=== PATIENT | female | born 1995 | race Caucasian/White ===

== ENCOUNTER 2020-05-19 17:57 | Inpatient (IN) | payer MEDICAID ==
[2020-05-19] MEDS ORDERED: Ondansetron 4 MG/2 ML SDV IVPUSH PRN (18:07)
[2020-05-19] MEDS ORDERED: Sodium Chloride 0.9% 10 ML Syringe FLUSH PRN (18:07)
[2020-05-19] MEDS ORDERED: Nalbuphine 10 MG/1 ML Vial IVPUSH PRN (18:07)
[2020-05-19] MEDS ORDERED: Ampicillin 2 GM in Sodium Chloride 0.9% 100 ML IV ONE (18:07)
[2020-05-19] MEDS ORDERED: Oxytocin/Lactated Ringers 10 UNIT/1,000 ML BAG IV SCH ×2 (18:15)
[2020-05-19] MEDS ORDERED: Ampicillin 2 GM AdvVial IV ONE (20:59)
[2020-05-19] MEDS: Lactated Ringers 1,000 ML IV SCH (21:10)
[2020-05-19] MEDS ORDERED: Calcium Carbonate 500 MG Tab.Chew PO PRN (21:16)
[2020-05-20] MEDS: Lactated Ringers 1,000 ML IV SCH ×3 (00:41→05:25)
[2020-05-20] MEDS: Ampicillin 1 GM in Sodium Chloride 0.9% 100 ML IV SCH ×5 (00:58→16:44)
[2020-05-20] MEDS ORDERED: Ondansetron 4 MG/2 ML SDV IVPUSH PRN (04:01)
[2020-05-20] MEDS ORDERED: fentaNYL 100 MCG/2 ML SDV EPIDUR PRN (04:01)
[2020-05-20] MEDS ORDERED: ePHEDrine 50 MG/ML SDV IVPUSH PRN (04:01)
--- NOTE | 2020-05-20 04:06 | PCM.PREANE ---
Preanesthetic Assessment - Procedure Proposed Procedure: Epidural - Anesthesia/Transfusion/Family Hx Anesthesia History: Prior Anesthesia Without Reaction Family History of Anesthesia Reaction: No Transfusion History: No Prior Transfusion(s) Intubation History: Unknown - Review of Systems General: No Symptoms Pulmonary: No Symptoms Cardiovascular: No Symptoms (Gestational HTN) Gastrointestinal: No Symptoms (GERD), Constipation, Nausea Neurological: No Symptoms (Motion sickness/scoliosis) - Physical Assessment NPO Status Date: 05/19/20 Vital Signs: Last Vital Signs Temp 36.7 C 05/19/20 18:08 Pulse 99 05/19/20 18:08 Resp 16 05/19/20 18:08 BP 148/61 H 05/19/20 18:08 Pulse Ox 99 05/19/20 18:08 Height: 1.73 m Weight: 118.841 kg ASA Class: 2 Mental Status: Alert & Oriented x3 Airway Class: Mallampati = 3 Dentition: Reports: Normal Dentition (bottom permanent retainer), Caries Thyro-Mental Finger Breadths: 3 Mouth Opening Finger Breadths: 3 ROM/Head Extension: Full Lungs: Clear to Auscultation, Normal Respiratory Effort Cardiovascular: Regular Rate, Regular Rhythm, No Murmurs - Lab Values: Laboratory Last Values WBC 12.80 K/mm3 (3.98-10.04) H 05/19/20 18:35 RBC 4.68 M/mm3 (3.98-5.22) 05/19/20 18:35 Hgb 11.5 gm/dl (11.2-15.7) 05/19/20 18:35 Hct 36.5 % (34.1-44.9) 05/19/20 18:35 MCV 78.0 fl (79.4-94.8) L 05/19/20 18:35 MCH 24.6 pg (25.6-32.2) L 05/19/20 18:35 MCHC 31.5 g/dl (32.2-35.5) L 05/19/20 18:35 RDW Std Deviation 48.4 fL (36.4-46.3) H 05/19/20 18:35 Plt Count 230 K/mm3 (182-369) 05/19/20 18:35 MPV 10.4 fl (9.4-12.3) 05/19/20 18:35 Neut % (Auto) 75.7 % (34.0-71.1) H 05/19/20 18:35 Lymph % (Auto) 14.1 % (19.3-51.7) L 05/19/20 18:35 [place] % (Auto) 7.2 % (4.7-12.5) 05/19/20 18:35 Eos % (Auto) 2.6 (0.7-5.8) 05/19/20 18:35 Baso % (Auto) 0.2 % (0.1-1.2) 05/19/20 18:35 Neut # (Auto) 9.70 K/mm3 (1.56-6.13) H 05/19/20 18:35 Lymph # (Auto) 1.80 K/mm3 (1.18-3.74) 05/19/20 18:35 [place] # (Auto) 0.92 K/mm3 (0.24-0.36) H 05/19/20 18:35 Eos # (Auto) 0.33 K/mm3 (0.04-0.36) 05/19/20 18:35 Baso # (Auto) 0.03 K/mm3 (0.01-0.08) 05/19/20 18:35 Manual Slide Review Abnormal smear 05/19/20 18:35 BUN 10 mg/dL (7-18) 05/19/20 18:35 Creatinine 0.8 mg/dL (0.55-1.02) 05/19/20 18:35 Est Cr Clr Drug Dosing 109.38 mL/min 05/19/20 18:35 Estimated GFR (MDRD) > 60 mL/min (>60) 05/19/20 18:35 Uric Acid 5.1 mg/dL (2.6-6.0) 05/19/20 18:35 AST 10 U/L (15-37) L 05/19/20 18:35 ALT 16 U/L (14-59) 05/19/20 18:35 Lactate Dehydrogenase 112 U/L (81-234) 05/19/20 18:35 Ur Random Creatinine 75.7 mg/dL (30.0-125.0) 05/20/20 00:30 U Random Total Protein 10.9 mg/dL (0.0-11.8) 05/20/20 00:30 Protein/Creatinin Ratio 144.0 mg/g (0-149) 05/20/20 00:30 SARS-CoV-2 RNA (ANNA) Negative (NEGATIVE) 05/19/20 18:30 Above labs reviewed and noted and within acceptable ranges to proceed with epidural - Allergies Allergies/Adverse Reactions: Allergies Allergy/AdvReac Type Severity Reaction Status Date / Time oxycodone [From Percocet] Allergy Mild Nausea and Verified 05/19/20 19:09 Vomiting pineapple Allergy Mild Hives Verified 05/19/20 19:09 - Anesthesia Plan Pre-Op Medication Ordered: None - Acknowledgements Anesthesia Type Planned: Epidural Pt an Appropriate Candidate for the Planned Anesthesia: Yes Alternatives and Risks of Anesthesia Discussed w Pt/Guardian: Yes Pt/Guardian Understands and Agrees with Anesthesia Plan: Yes PreAnesthesia Questionnaire HEENT History: Reports: Otitis Media Gastrointestinal History: Reports: Irritable Bowel Syndrome Genitourinary History: Reports: UTI, Recurrent 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: , Spontaneous Endocrine/Metabolic History: Reports: Other (See Below) Other Endocrine/Metabolic History: enlarged thyroid - SUBSTANCE USE Tobacco Use Status *Q: Never Tobacco User Second Hand Smoke Exposure: No Recreational Drug Use History: No - HOME MEDS Home Medications: Home Meds Aspirin [Aspirin EC] 81 mg PO DAILY 01/31/20 [History] Ondansetron [Zofran] 4 mg PO Q4H PRN 01/31/20 [History] Pnv No.95/Ferrous Fum/Folic AC [ Tablet] 1 each PO DAILY 01/31/20 [History] cephALEXin [Cephalexin] 250 mg PO BEDTIME 01/31/20 [History] Cimetidine 200 mg PO BIDMEALS 04/12/20 [History] - CURRENT (IN HOUSE) MEDS Current Meds: Current Medications Calcium Carbonate/Glycine (Tums) 1,000 mg PO Q2HR PRN PRN Reason: Indigestion Last Admin: 05/19/20 21:44 Dose: 1,000 mg Documented by: Ephedrine Sulfate (Ephedrine Sulfate) 5 mg IVPUSH ASDIRECTED PRN PRN Reason: Hypotension Fentanyl (Sublimaze) 100 mcg EPIDUR Q3H PRN PRN Reason: Pain Fentanyl/Bupivacaine HCl (Fentanyl/Bupivacaine/Ns 2 Mcg-0.125% 100 Ml) 100 ml EPIDUR ASDIRECTED MELY Oxytocin/Lactated Ringer's (Pitocin In Lr 10 Units/1,000 Ml) 10 unit in 1,000 mls @ 12 mls/hr IV TITRATE MELY; Protocol Last Titration: 05/20/20 02:55 Dose: 12 munits/min, 72 mls/hr Documented by: Oxytocin/Lactated Ringer's (Pitocin In Lr 10 Units/1,000 Ml) 10 unit in 1,000 mls @ 500 mls/hr IV .CONTINUOUS MELY Lactated Ringer's (Ringers, Lactated) 1,000 mls @ 100 mls/hr IV ASDIRECTED MELY Last Admin: 05/20/20 00:41 Dose: 100 mls/hr Documented by: Ampicillin Sodium 1 gm/ Sodium (Chloride) 100 mls @ 200 mls/hr IV Q4H [facility] Miscellaneous Medication (Phenylephrine 1 Mg/10 Ml-Ns) 0 mg IVPUSH ONETIME ONE Stop: 05/20/20 04:02 Nalbuphine HCl (Nubain) 10 mg IVPUSH Q2H PRN PRN Reason: Pain Ondansetron HCl (Zofran) 4 mg IVPUSH Q4H PRN PRN Reason: Nausea/Vomiting Ondansetron HCl (Zofran) 4 mg IVPUSH ONETIME PRN PRN Reason: Nausea/Vomiting Sodium Chloride (Saline Flush) 10 ml FLUSH ASDIRECTED PRN PRN Reason: Keep Vein Open Discontinued Medications Ampicillin Sodium (Ampicillin) Confirm Administered Dose 2 gm IV .STK-MED ONE Stop: 05/19/20 21:00 Last Admin: 05/19/20 21:19 Dose: Not Given Documented by: Ampicillin Sodium 2 gm/ Sodium (Chloride) 100 mls @ 200 mls/hr IV ONETIME ONE Stop: 05/19/20 18:36 Last Admin: 05/19/20 21:11 Dose: 200 mls/hr Documented by: Ampicillin Sodium 1 gm/ Sodium (Chloride) 100 mls @ 200 mls/hr IV Q4H [facility] Last Admin: 05/20/20 00:58 Dose: 200 mls/hr Documented by:
[2020-05-20] MEDS ORDERED: Bupivacaine/fentaNYL/NS 100 ML Bag EPIDUR SCH (04:15)
--- NOTE | 2020-05-20 08:00 | PCM.LDHP ---
L&D History of Present Illness - General Date of Service: 05/20/20 Admit Problem/Dx: Patient Status Order with Admit Dx/Problem 05/19/20 18:08 Patient Status [ADT] Routine Admission Diagnosis/Problem Admission Diagnosis/Problem - History of Present Illness Introduction:: 24 year old at 39w1. Here for SROM. Clear fluid. Pain Score: 0 - Related Data Allergies/Adverse Reactions: Allergies Allergy/AdvReac Type Severity Reaction Status Date / Time oxycodone [From Percocet] Allergy Mild Nausea and Verified 05/19/20 19:09 Vomiting pineapple Allergy Mild Hives Verified 05/19/20 19:09 Home Medications: Home Meds Aspirin [Aspirin EC] 81 mg PO DAILY 01/31/20 [History] Ondansetron [Zofran] 4 mg PO Q4H PRN 01/31/20 [History] Pnv No.95/Ferrous Fum/Folic AC [ Tablet] 1 each PO DAILY 01/31/20 [History] cephALEXin [Cephalexin] 250 mg PO BEDTIME 01/31/20 [History] Cimetidine 200 mg PO BIDMEALS 04/12/20 [History] Past Medical History HEENT History: Reports: Otitis Media Gastrointestinal History: Reports: Irritable Bowel Syndrome Genitourinary History: Reports: UTI, Recurrent RAD TECH History: Reports: , Spontaneous Endocrine/Metabolic History: Reports: Other (See Below) Other Endocrine/Metabolic History: enlarged thyroid Social & Family History - Family History Family Medical History: No Pertinent Family History - Tobacco Use Tobacco Use Status *Q: Never Tobacco User Second Hand Smoke Exposure: No - Recreational Drug Use Recreational Drug Use: No H&P Review of Systems - Review of Systems: Review Of Systems: See Below General: Reports: No Symptoms HEENT: Reports: No Symptoms Pulmonary: Reports: No Symptoms Cardiovascular: Reports: No Symptoms Gastrointestinal: Reports: No Symptoms Genitourinary: Reports: No Symptoms Musculoskeletal: Reports: No Symptoms Skin: Reports: No Symptoms Psychiatric: Reports: No Symptoms Neurological: Reports: No Symptoms Hematologic/Lymphatic: Reports: No Symptoms Immunologic: Reports: No Symptoms L&D Exam - Exam Exam: See Below - Vital Signs Vital Signs: Last Vital Signs Temp 36.7 C 05/19/20 18:08 Pulse 99 05/19/20 18:08 Resp 16 05/19/20 18:08 BP 148/61 H 05/19/20 18:08 Pulse Ox 100 05/20/20 04:53 Weight: 118.841 kg - OB Specific Contraction Intensity: Moderate to Strong Movement: Active Heart Tones: Present Heart Rate (FHR) Variability: Moderate (6-25 bmp) Presentation: Vertex - Son Score Son Score Cervix Position: Anterior Son Score Consistency: Medium Son Score Effacement: >80% Son Score Dilation: 3-4 cm Son Score Infant's Station: -2 Son Score Total: 9 - Exam General: Alert, Oriented HEENT: PERRLA, Conjunctiva Clear, EACs Clear, EOMI, Hearing Intact, Mucosa Moist & [place], Nares Patent, Normal Nasal Septum, Posterior Pharynx Clear, TMs Clear Neck: Supple, Trachea Midline Lungs: Clear to Auscultation, Normal Respiratory Effort Cardiovascular: Regular Rate, Regular Rhythm GI/Abdominal Exam: Normal Bowel Sounds, Soft, Non-Tender, No Organomegaly, No Distention, No Abnormal Bruit, No Mass, Pelvis Stable Genitourinary: Normal external exam Back Exam: Normal Inspection, Full Range of Motion Extremities: Normal Inspection, Normal Range of Motion, Non-Tender, No Pedal Edema, Normal Capillary Refill Skin: Warm, Dry, Intact Neurological: Cranial Nerves Intact, Reflexes Equal Bilateral Psychiatric: Alert, Normal Affect, Normal Mood - Patient Data Lab Results Last 24 hrs: Laboratory Results - last 24 hr 05/19/20 05/19/20 05/19/20 Range/Units 18:30 18:35 18:35 WBC 12.80 H (3.98-10.04) K/mm3 RBC 4.68 (3.98-5.22) M/mm3 Hgb 11.5 (11.2-15.7) gm/dl Hct 36.5 (34.1-44.9) % MCV 78.0 L (79.4-94.8) fl MCH 24.6 L (25.6-32.2) pg MCHC 31.5 L (32.2-35.5) g/dl RDW Std Deviation 48.4 H (36.4-46.3) fL Plt Count 230 (182-369) K/mm3 MPV 10.4 (9.4-12.3) fl Neut % (Auto) 75.7 H (34.0-71.1) % Lymph % (Auto) 14.1 L (19.3-51.7) % [place] % (Auto) 7.2 (4.7-12.5) % Eos % (Auto) 2.6 (0.7-5.8) Baso % (Auto) 0.2 (0.1-1.2) % Neut # (Auto) 9.70 H (1.56-6.13) K/mm3 Lymph # (Auto) 1.80 (1.18-3.74) K/mm3 [place] # (Auto) 0.92 H (0.24-0.36) K/mm3 Eos # (Auto) 0.33 (0.04-0.36) K/mm3 Baso # (Auto) 0.03 (0.01-0.08) K/mm3 Manual Slide Review Abnormal smear BUN 10 (7-18) mg/dL Creatinine 0.8 (0.55-1.02) mg/dL Est Cr Clr Drug Dosing 109.38 mL/min Estimated GFR (MDRD) > 60 (>60) mL/min Uric Acid 5.1 (2.6-6.0) mg/dL AST 10 L (15-37) U/L ALT 16 (14-59) U/L Lactate Dehydrogenase 112 (81-234) U/L Ur Random Creatinine (30.0-125.0) mg/dL U Random Total Protein (0.0-11.8) mg/dL Protein/Creatinin Ratio (0-149) mg/g SARS-CoV-2 RNA (ANNA) Negative (NEGATIVE) 05/20/20 Range/Units 00:30 WBC (3.98-10.04) K/mm3 RBC (3.98-5.22) M/mm3 Hgb (11.2-15.7) gm/dl Hct (34.1-44.9) % MCV (79.4-94.8) fl MCH (25.6-32.2) pg MCHC (32.2-35.5) g/dl RDW Std Deviation (36.4-46.3) fL Plt Count (182-369) K/mm3 MPV (9.4-12.3) fl Neut % (Auto) (34.0-71.1) % Lymph % (Auto) (19.3-51.7) % [place] % (Auto) (4.7-12.5) % Eos % (Auto) (0.7-5.8) Baso % (Auto) (0.1-1.2) % Neut # (Auto) (1.56-6.13) K/mm3 Lymph # (Auto) (1.18-3.74) K/mm3 [place] # (Auto) (0.24-0.36) K/mm3 Eos # (Auto) (0.04-0.36) K/mm3 Baso # (Auto) (0.01-0.08) K/mm3 Manual Slide Review BUN (7-18) mg/dL Creatinine (0.55-1.02) mg/dL Est Cr Clr Drug Dosing mL/min Estimated GFR (MDRD) (>60) mL/min Uric Acid (2.6-6.0) mg/dL AST (15-37) U/L ALT (14-59) U/L Lactate Dehydrogenase (81-234) U/L Ur Random Creatinine 75.7 (30.0-125.0) mg/dL U Random Total Protein 10.9 (0.0-11.8) mg/dL Protein/Creatinin Ratio 144.0 (0-149) mg/g SARS-CoV-2 RNA (ANNA) (NEGATIVE) Result Diagrams: 05/19/20 18:35 05/19/20 18:35 Problem List Initiated/Reviewed/Updated: Yes Orders Last 24hrs: Active Orders 24 hr Category Date Time Status Patient Status [ADT] Routine ADT 05/19/20 18:08 Active Activity as Tolerated [RC] PFP Care 05/19/20 18:08 Active Communication Order [RC] ASDIRECTED Care 05/19/20 18:08 Active Notify Provider [RC] ASDIRECTED Care 05/20/20 04:01 Active Notify Provider [RC] PFP Care 05/19/20 18:08 Active Notify Provider [RC] PRN Care 05/19/20 18:08 Active Oxygen Therapy [RC] ASDIRECTED Care 05/20/20 04:01 Active Peripheral IV Care [RC] Q2HR Care 05/19/20 18:08 Active Pulse Oximetry [RC] ASDIRECTED Care 05/20/20 04:01 Active Vital Signs [RC] PER UNIT ROUTINE Care 05/19/20 18:08 Active Regular Diet [DIET] Diet 05/19/20 Dinner Active RAPID PLASMA REAGIN,RPR [CHEM] Routine Lab 05/19/20 18:35 Received Ampicillin 1 gm Med 05/20/20 05:00 Active Sodium Chloride 0.9% [Normal Saline] 100 ml IV Q4H Bupivacaine/fentaNYL/NS [fentaNYL/Bupivacaine/NS 2 MCG- Med 05/20/20 04:15 Active 0.125% 100 ML] 100 ml EPIDUR ASDIRECTED Calcium Carbonate [Tums] Med 05/19/20 21:16 Active 1,000 mg PO Q2HR PRN Lactated Ringers [Ringers, Lactated] 1,000 ml Med 05/19/20 18:15 Active IV ASDIRECTED Nalbuphine [Nubain] Med 05/19/20 18:07 Active 10 mg IVPUSH Q2H PRN Ondansetron [Zofran] Med 05/20/20 04:01 Active 4 mg IVPUSH ONETIME PRN Ondansetron [Zofran] Med 05/19/20 18:07 Active 4 mg IVPUSH Q4H PRN Oxytocin/Lactated Ringers [Pitocin in LR 10 Units/1,000 Med 05/19/20 18:15 Active ML] 10 unit in 1,000 ml IV .CONTINUOUS Oxytocin/Lactated Ringers [Pitocin in LR 10 Units/1,000 Med 05/19/20 18:15 Active ML] 10 unit in 1,000 ml IV TITRATE Sodium Chloride 0.9% [Saline Flush] Med 05/19/20 18:07 Active 10 ml FLUSH ASDIRECTED PRN ePHEDrine [ePHEDrine sulfate] Med 05/20/20 04:01 Active 5 mg IVPUSH ASDIRECTED PRN fentaNYL [Sublimaze] Med 05/20/20 04:01 Active 100 mcg EPIDUR Q3H PRN Electronic Heart Tones Ext w TOCO [WOMSER] Oth 05/19/20 18:08 Ordered Routine Electronic Heart Tones Internal [WOMSER] Per Unit Oth 05/19/20 18:08 Ordered Routine PIH Panel [OM.PC] Stat Oth 05/19/20 23:12 Ordered Peripheral IV Insertion Adult [OM.PC] Routine Oth 05/19/20 18:08 Ordered Resuscitation Status Routine Resus Stat 05/19/20 18:07 Ordered Medication Orders Calcium Carbonate/Glycine (Tums) 1,000 mg PO Q2HR PRN PRN Reason: Indigestion Last Admin: 05/19/20 21:44 Dose: 1,000 mg Documented by: NATA Ephedrine Sulfate (Ephedrine Sulfate) 5 mg IVPUSH ASDIRECTED PRN PRN Reason: Hypotension Fentanyl (Sublimaze) 100 mcg EPIDUR Q3H PRN PRN Reason: Pain Last Admin: 05/20/20 04:20 Dose: 100 mcg Documented by: KIESHARTJEAN Fentanyl/Bupivacaine HCl (Fentanyl/Bupivacaine/Ns 2 Mcg-0.125% 100 Ml) 100 ml EPIDUR ASDIRECTED MELY Last Admin: 05/20/20 04:23 Dose: 100 ml Documented by: NATA Oxytocin/Lactated Ringer's (Pitocin In Lr 10 Units/1,000 Ml) 10 unit in 1,000 mls @ 12 mls/hr IV TITRATE MELY; Protocol Last Titration: 05/20/20 06:45 Dose: 14 munits/min, 84 mls/hr Documented by: Titration: 05/20/20 02:55 Dose: 12 munits/min, 72 mls/hr Documented by: Titration: 05/20/20 01:40 Dose: 10 munits/min, 60 mls/hr Documented by: Titration: 05/20/20 01:01 Dose: 8 munits/min, 48 mls/hr Documented by: Titration: 05/19/20 23:40 Dose: 6 munits/min, 36 mls/hr Documented by: Titration: 05/19/20 23:00 Dose: 4 munits/min, 24 mls/hr Documented by: Admin: 05/19/20 22:10 Dose: 2 munits/min, 12 mls/hr Documented by: KIESHARTJEAN Oxytocin/Lactated Ringer's (Pitocin In Lr 10 Units/1,000 Ml) 10 unit in 1,000 mls @ 500 mls/hr IV .CONTINUOUS MELY Lactated Ringer's (Ringers, Lactated) 1,000 mls @ 100 mls/hr IV ASDIRECTED MELY Last Admin: 05/20/20 05:25 Dose: 100 mls/hr Documented by: Infusion: 05/20/20 05:24 Dose: 999 mls/hr Documented by: Admin: 05/20/20 04:23 Dose: 999 mls/hr Documented by: Infusion: 05/20/20 04:23 Dose: 999 mls/hr Documented by: Infusion: 05/20/20 03:40 Dose: 999 mls/hr Documented by: Admin: 05/20/20 00:41 Dose: 100 mls/hr Documented by: Infusion: 05/20/20 00:41 Dose: 100 mls/hr Documented by: Admin: 05/19/20 21:10 Dose: 100 mls/hr Documented by: NATA Ampicillin Sodium 1 gm/ Sodium (Chloride) 100 mls @ 200 mls/hr IV Q4H [facility] Last Admin: 05/20/20 05:10 Dose: 200 mls/hr Documented by: NATA Nalbuphine HCl (Nubain) 10 mg IVPUSH Q2H PRN PRN Reason: Pain Ondansetron HCl (Zofran) 4 mg IVPUSH Q4H PRN PRN Reason: Nausea/Vomiting Ondansetron HCl (Zofran) 4 mg IVPUSH ONETIME PRN PRN Reason: Nausea/Vomiting Sodium Chloride (Saline Flush) 10 ml FLUSH ASDIRECTED PRN PRN Reason: Keep Vein Open Assessment/Plan Comment:: Term labor. Size greater than dates. Pitocin running. Anticipate .
[2020-05-20] MEDS ORDERED: Oxytocin/Lactated Ringers 20 UNIT/1,000 ML BAG IV SCH (10:30)
[2020-05-20] MEDS ORDERED: Lidocaine 1% 2 ML ONE (11:52)
--- NOTE | 2020-05-20 12:12 | PCM.SN.2 ---
- Free Text/Narrative Note: Anesthesia Note: Start: 1200 Stop: 1210 IV start times two attempts. 20 gauge to left inner wrist. Flushed well with 10ml's of NS.
--- NOTE | 2020-05-20 12:46 | PCM.SN.2 ---
- Free Text/Narrative Note: Stage I - patient presented with SROM. Augmented with pitocin. Antibiotics x 5 doses. Epidural. IUPC placed. Progressed to complete with overall reassuring FHT. Stage II - of viable male, weight 3420, 8/9 apgars at 1226 on 05/20/2020. Head delivered in controlled manner over intact perineum. Body and shoulders a traumatically. Positive cry. To maternal abdomen. Cord clamped and cut by FOB at 1 minute of life. To warmer. Cord blood collected. Stage III - of intact placenta (some trailing membranes after). 3vc. Small 1st degree laceration. EBL 100.
[2020-05-20] MEDS ORDERED: Benzocaine/Menthol 20%-0.5% Spray 56 GM Canister TOP PRN (13:07)
[2020-05-20] MEDS ORDERED: Witch Hazel Medicated Pads 40/Jar TOP PRN (13:07)
--- NOTE | 2020-05-20 13:23 | PCM48HPAN ---
Post Anesthesia Note - EVALUATION WITHIN 48HRS OF ANESTHETIC Vital Signs in Normal Range: Yes Patient Participated in Evaluation: Yes Respiratory Function Stable: Yes Airway Patent: Yes Cardiovascular Function Stable: Yes Hydration Status Stable: Yes Pain Control Satisfactory: Yes Nausea and Vomiting Control Satisfactory: Yes Mental Status Recovered: Yes Vital Signs: Last Vital Signs Temp 36.7 C 05/19/20 18:08 Pulse 99 05/19/20 18:08 Resp 16 05/19/20 18:08 BP 148/61 H 05/19/20 18:08 Pulse Ox 100 05/20/20 04:53
[2020-05-20] MEDS ORDERED: Bupivacaine 0.25% 10 ML SDV ONE (14:00)
[2020-05-20] MEDS: Docusate Sodium 100 MG Cap PO PRN (14:00)
[2020-05-20] MEDS: Ibuprofen 600 MG Tab PO PRN ×2 (14:00→23:59)
[2020-05-21] MEDS: Ibuprofen 600 MG Tab PO PRN ×3 (05:28→19:52)
--- NOTE | 2020-05-21 07:44 | PCM.PNPP ---
- General Info Date of Service: 05/21/20 Functional Status: Reports: Pain Controlled - Review of Systems General: Reports: No Symptoms HEENT: Reports: No Symptoms Pulmonary: Reports: No Symptoms Cardiovascular: Reports: No Symptoms Gastrointestinal: Reports: No Symptoms Genitourinary: Reports: No Symptoms Musculoskeletal: Reports: No Symptoms Skin: Reports: No Symptoms Neurological: Reports: No Symptoms Psychiatric: Reports: No Symptoms - General Info Date of Service: 05/21/20 - Patient Data Vital Signs - Most Recent: Last Vital Signs Temp 36.6 C 05/20/20 19:59 Pulse 80 05/20/20 19:59 Resp 14 05/20/20 19:59 BP 97/59 L 05/20/20 19:59 Pulse Ox 99 05/20/20 19:59 Weight - Most Recent: 118.841 kg Med Orders - Current: Current Medications Benzocaine/Menthol (Dermoplast Pain Relief [place]) 0 gm TOP ASDIRECTED PRN PRN Reason: Perineal Comfort Measure Last Admin: 05/20/20 14:01 Dose: 1 can Documented by: Docusate Sodium (Colace) 100 mg PO BID PRN PRN Reason: Constipation Last Admin: 05/20/20 14:00 Dose: 100 mg Documented by: Ibuprofen (Motrin) 600 mg PO Q6H PRN PRN Reason: Mild pain or fever Last Admin: 05/21/20 05:28 Dose: 600 mg Documented by: Jose Juan Hendrickson (Ericcks) 1 pad TOP ASDIRECTED PRN PRN Reason: Pain Last Admin: 05/20/20 14:01 Dose: 1 tub Documented by: Discontinued Medications Ampicillin Sodium (Ampicillin) Confirm Administered Dose 2 gm IV .STK-MED ONE Stop: 05/19/20 21:00 Last Admin: 05/19/20 21:19 Dose: Not Given Documented by: Calcium Carbonate/Glycine (Tums) 1,000 mg PO Q2HR PRN PRN Reason: Indigestion Last Admin: 05/19/20 21:44 Dose: 1,000 mg Documented by: Ephedrine Sulfate (Ephedrine Sulfate) 5 mg IVPUSH ASDIRECTED PRN PRN Reason: Hypotension Fentanyl (Sublimaze) 100 mcg EPIDUR Q3H PRN PRN Reason: Pain Last Admin: 05/20/20 04:20 Dose: 100 mcg Documented by: Fentanyl/Bupivacaine HCl (Fentanyl/Bupivacaine/Ns 2 Mcg-0.125% 100 Ml) 100 ml EPIDUR ASDIRECTED [facility] Last Admin: 05/20/20 04:23 Dose: 100 ml Documented by: Ampicillin Sodium 2 gm/ Sodium (Chloride) 100 mls @ 200 mls/hr IV ONETIME ONE Stop: 05/19/20 18:36 Last Admin: 05/19/20 21:11 Dose: 200 mls/hr Documented by: Ampicillin Sodium 1 gm/ Sodium (Chloride) 100 mls @ 200 mls/hr IV Q4H [facility] Last Admin: 05/20/20 06:42 Dose: Not Given Documented by: Oxytocin/Lactated Ringer's (Pitocin In Lr 10 Units/1,000 Ml) 10 unit in 1,000 mls @ 12 mls/hr IV TITRATE MELY; Protocol Last Titration: 05/20/20 10:15 Dose: 22 munits/min, 132 mls/hr Documented by: Oxytocin/Lactated Ringer's (Pitocin In Lr 10 Units/1,000 Ml) 10 unit in 1,000 mls @ 500 mls/hr IV .CONTINUOUS MELY Lactated Ringer's (Ringers, Lactated) 1,000 mls @ 100 mls/hr IV ASDIRECTED [facility] Last Admin: 05/20/20 05:25 Dose: 100 mls/hr Documented by: Ampicillin Sodium 1 gm/ Sodium (Chloride) 100 mls @ 200 mls/hr IV Q4H [facility] Last Admin: 05/20/20 16:44 Dose: Not Given Documented by: Oxytocin/Lactated Ringer's (Pitocin In Lr 20 Units/1,000 Ml) 20 unit in 1,000 mls @ 66 mls/hr IV TITRATE MELY; Protocol Last Admin: 05/20/20 11:26 Dose: 66 mls/hr Documented by: Lidocaine HCl (Xylocaine-Mpf 1%) Confirm Administered Dose 2 mls @ as directed .ROUTE .STK-MED ONE Stop: 05/20/20 11:53 Miscellaneous Medication (Phenylephrine 1 Mg/10 Ml-Ns) 0 mg IVPUSH ONETIME ONE Stop: 05/20/20 04:02 Last Admin: 05/20/20 16:44 Dose: Not Given Documented by: Nalbuphine HCl (Nubain) 10 mg IVPUSH Q2H PRN PRN Reason: Pain Ondansetron HCl (Zofran) 4 mg IVPUSH Q4H PRN PRN Reason: Nausea/Vomiting Last Admin: 05/20/20 10:26 Dose: 4 mg Documented by: Ondansetron HCl (Zofran) 4 mg IVPUSH ONETIME PRN PRN Reason: Nausea/Vomiting Sodium Chloride (Saline Flush) 10 ml FLUSH ASDIRECTED PRN PRN Reason: Keep Vein Open - Interaction Support Person: - Recovery Exam Fundal Tone: Firm Fundal Level: At Umbilicus Fundal Placement: Midline Lochia Amount: Small Lochia Color: Rubra/Red Perineum Description: Other (see below) Other Perinuem Description: 1st degree Episiotomy/Laceration: Approximated Bladder Status: Voiding Urinary Elimination: Voided - Exam General: Alert, Oriented HEENT: Pupils Equal Neck: Supple Lungs: Clear to Auscultation, Normal Respiratory Effort Cardiovascular: Regular Rate, Regular Rhythm GI/Abdominal Exam: Normal Bowel Sounds Extremities: Normal Inspection, Normal Range of Motion, Non-Tender, No Pedal Edema, Normal Capillary Refill Neurological: No New Focal Deficit Psy/Mental Status: Alert, Normal Affect, Normal Mood - Problem List Review Problem List Initiated/Reviewed/Updated: Yes - My Orders Last 24 Hours: My Active Orders 05/20/20 13:07 Benzocaine/Menthol [Dermoplast Pain Relief [place]] See Dose Instructions TOP ASDIRECTED PRN Docusate Sodium [Colace] 100 mg PO BID PRN Ibuprofen [Motrin] 600 mg PO Q6H PRN witch Vladislav [Tucks] 1 pad TOP ASDIRECTED PRN Heat Therapy [OM.PC] PRN 05/20/20 13:07 Activity as Tolerated [RC] PER UNIT ROUTINE Vital Signs [RC] 03,09,15,21 Assess Lochia [WOMSER] Per Unit Routine Assess Uterine Involution [WOMSER] Per Unit Routine Breast Pump [WOMSER] Per Unit Routine Medication Administration Instruction [OM.PC] Routine Perineal Care [OM.PC] Per Unit Routine Sitz Bath [OM.PC] Per Unit Routine 05/21/20 13:07 Heat Therapy [OM.PC] PRN - Assessment Assessment:: Doing well. Some nursing issues. Slept poorly. Otherwise no issues. Probably discharge tomorrow.
[2020-05-21] MEDS: Docusate Sodium 100 MG Cap PO PRN (19:52)
--- NOTE | 2020-05-21 23:47 | PCM.DCSUM1 ---
Discharge Summary - Hospital Course Brief History: Uncomplicated labor, delivery and course Diagnosis: Stroke: No - Discharge Data Discharge Date: 05/22/20 Discharge Disposition: Home, Self-Care 01 Condition: Good - Referral to Home Health Primary Care Physician: Dany Judge MD - Patient Summary/Data Hospital Course: Stage I - patient presented with SROM. Augmented with pitocin. Antibiotics x 5 doses. Epidural. IUPC placed. Progressed to complete with overall reassuring FHT. Stage II - of viable male, weight 3420, 8/9 apgars at 1226 on 05/20/2020. Head delivered in controlled manner over intact perineum. Body and shoulders atraumatically. Positive cry. To maternal abdomen. Cord clamped and cut by FOB at 1 minute of life. To warmer. Cord blood collected. Stage III - of intact placenta (some trailing membranes after). 3vc. Small 1st degree laceration. EBL 100. PPD1 did well. Some issues with breast feeding so stayed until PPD2. - Patient Instructions Diet: Usual Diet as Tolerated Activity: No Strenuous Activities Activity, Other: pelvic rest Driving: May Drive Today Showering/Bathing: May Shower Notify Provider of: Fever, Increased Pain, Swelling and Redness, Drainage - Discharge Plan *PRESCRIPTION DRUG MONITORING PROGRAM REVIEWED*: No *COPY OF PRESCRIPTION DRUG MONITORING REPORT IN PATIENT MAGI: No Home Medications: Home Meds Aspirin [Aspirin EC] 81 mg PO DAILY 01/31/20 [History] Ondansetron [Zofran] 4 mg PO Q4H PRN 01/31/20 [History] Pnv No.95/Ferrous Fum/Folic AC [ Tablet] 1 each PO DAILY 01/31/20 [History] cephALEXin [Cephalexin] 250 mg PO BEDTIME 01/31/20 [History] Cimetidine 200 mg PO BIDMEALS 04/12/20 [History] Referrals: Dany Judge MD [Primary Care Provider] - (2 weeks) - Discharge Summary/Plan Comment DC Time >30 min.: No - Patient Data Vitals - Most Recent: Last Vital Signs Temp 36.4 C 05/21/20 20:42 Pulse 78 05/21/20 20:42 Resp 14 05/21/20 20:42 BP 134/59 L 05/21/20 20:42 Pulse Ox 98 05/21/20 20:42 Weight - Most Recent: 118.841 kg I&O - Last 24 hours: Intake & Output 05/21/20 05/21/20 05/22/20 14:59 22:59 06:59 Intake Total 240 120 Balance 240 120 Med Orders - Current: Current Medications Benzocaine/Menthol (Dermoplast Pain Relief [place]) 0 gm TOP ASDIRECTED PRN PRN Reason: Perineal Comfort Measure Last Admin: 05/20/20 14:01 Dose: 1 can Documented by: Docusate Sodium (Colace) 100 mg PO BID PRN PRN Reason: Constipation Last Admin: 05/21/20 19:52 Dose: 100 mg Documented by: Ibuprofen (Motrin) 600 mg PO Q6H PRN PRN Reason: Mild pain or fever Last Admin: 05/21/20 19:52 Dose: 600 mg Documented by: Jose Juan Hendrickson (Ericcklyndsey) 1 pad TOP ASDIRECTED PRN PRN Reason: Pain Last Admin: 05/20/20 14:01 Dose: 1 tub Documented by: Discontinued Medications Ampicillin Sodium (Ampicillin) Confirm Administered Dose 2 gm IV .STK-MED ONE Stop: 05/19/20 21:00 Last Admin: 05/19/20 21:19 Dose: Not Given Documented by: Bupivacaine HCl (Sensorcaine-Mpf 0.25%) 10 ml .ROUTE .STK-MED ONE Stop: 05/20/20 14:01 Calcium Carbonate/Glycine (Tums) 1,000 mg PO Q2HR PRN PRN Reason: Indigestion Last Admin: 05/19/20 21:44 Dose: 1,000 mg Documented by: Ephedrine Sulfate (Ephedrine Sulfate) 5 mg IVPUSH ASDIRECTED PRN PRN Reason: Hypotension Fentanyl (Sublimaze) 100 mcg EPIDUR Q3H PRN PRN Reason: Pain Last Admin: 05/20/20 04:20 Dose: 100 mcg Documented by: Fentanyl/Bupivacaine HCl (Fentanyl/Bupivacaine/Ns 2 Mcg-0.125% 100 Ml) 100 ml EPIDUR ASDIRECTED MELY Last Admin: 05/20/20 04:23 Dose: 100 ml Documented by: Ampicillin Sodium 2 gm/ Sodium (Chloride) 100 mls @ 200 mls/hr IV ONETIME ONE Stop: 05/19/20 18:36 Last Admin: 05/19/20 21:11 Dose: 200 mls/hr Documented by: Ampicillin Sodium 1 gm/ Sodium (Chloride) 100 mls @ 200 mls/hr IV Q4H MELY Last Admin: 05/20/20 06:42 Dose: Not Given Documented by: Oxytocin/Lactated Ringer's (Pitocin In Lr 10 Units/1,000 Ml) 10 unit in 1,000 mls @ 12 mls/hr IV TITRATE MELY; Protocol Last Titration: 05/20/20 10:15 Dose: 22 munits/min, 132 mls/hr Documented by: Oxytocin/Lactated Ringer's (Pitocin In Lr 10 Units/1,000 Ml) 10 unit in 1,000 mls @ 500 mls/hr IV .CONTINUOUS MELY Lactated Ringer's (Ringers, Lactated) 1,000 mls @ 100 mls/hr IV ASDIRECTED MELY Last Admin: 05/20/20 05:25 Dose: 100 mls/hr Documented by: Ampicillin Sodium 1 gm/ Sodium (Chloride) 100 mls @ 200 mls/hr IV Q4H MELY Last Admin: 05/20/20 16:44 Dose: Not Given Documented by: Oxytocin/Lactated Ringer's (Pitocin In Lr 20 Units/1,000 Ml) 20 unit in 1,000 mls @ 66 mls/hr IV TITRATE MELY; Protocol Last Admin: 05/20/20 11:26 Dose: 66 mls/hr Documented by: Lidocaine HCl (Xylocaine-Mpf 1%) Confirm Administered Dose 2 mls @ as directed .ROUTE .STK-MED ONE Stop: 05/20/20 11:53 Miscellaneous Medication (Phenylephrine 1 Mg/10 Ml-Ns) 0 mg IVPUSH ONETIME ONE Stop: 05/20/20 04:02 Last Admin: 05/20/20 16:44 Dose: Not Given Documented by: Nalbuphine HCl (Nubain) 10 mg IVPUSH Q2H PRN PRN Reason: Pain Ondansetron HCl (Zofran) 4 mg IVPUSH Q4H PRN PRN Reason: Nausea/Vomiting Last Admin: 05/20/20 10:26 Dose: 4 mg Documented by: Ondansetron HCl (Zofran) 4 mg IVPUSH ONETIME PRN PRN Reason: Nausea/Vomiting Sodium Chloride (Saline Flush) 10 ml FLUSH ASDIRECTED PRN PRN Reason: Keep Vein Open
[2020-05-22] MEDS: Ibuprofen 600 MG Tab PO PRN (02:57)
== END 2020-05-22 12:20 | disposition home or self-care (01) | DRG 807 ==
LOC: JD.OBCHECK 17:57 → JD.OB 17:58 → JD.OBCHECK 18:08 → JD.OB 18:08 → OBSVTOIN 05-20 12:26 → JD.OB 05-20 12:27
PROVIDERS: ADMIT Obstetrics & Gynecology; ATTEND Obstetrics & Gynecology
PROC: 10E0XZZ Delivery of Products of Conception, External Approach (ICD-10-PCS; principal; 2020-05-20)
PROC: 0HQ9XZZ Repair Perineum Skin, External Approach (ICD-10-PCS; 2020-05-20)
PROC: 10H07YZ Insertion of Other Device into Products of Conception, Via Natural or Artificial Opening (ICD-10-PCS; 2020-05-20)
PROC: 3E0R3BZ Introduction of Anesthetic Agent into Spinal Canal, Percutaneous Approach (ICD-10-PCS; 2020-05-20)
DX: O70.0 First degree perineal laceration during delivery (principal); Z37.0 Single live birth; Z3A.39 39 weeks gestation of pregnancy; Z20.828 Contact with and (suspected) exposure to other viral communicable diseases
CPT/HCPCS: 01967; 36415; 51702; 59025; 59409; 82565; 82570; 83615; 84156; 84450; 84460; 84520; 84550; 85025; 86592; A9270-GY; J0290; J2001; J2405; J2590; J3010; J3490; J7050; J7120; U0002

== ENCOUNTER 2021-04-07 22:03 | Emergency (ER) | payer MEDICAID ==
[2021-04-07] MEDS ORDERED: LORazepam 1 MG Tab PO ONE (23:04)
--- NOTE | 2021-04-07 23:04 | EDM.PDOCBH ---
ED HPI GENERAL MEDICAL PROBLEM - General Chief Complaint: Behavioral/Psych Stated Complaint: MENTAL HEALTH Time Seen by Provider: 04/07/21 23:04 Source of Information: Reports: Patient History Limitations: Reports: No Limitations - History of Present Illness INITIAL COMMENTS - FREE TEXT/NARRATIVE: Patient is a 25-year-old female with a past history of suicidal ideation with attempt and anxiety. Patient presents to the night with a chief complaint of suicidal ideation. Patient reports feeling depressed and anxious for a long period of time. She reports a lot of her symptoms stem from her who has been cheating on her. She reports her has been cheating on her since the day they got . She reports tonight getting another text message from a girl that he was communicating with. She states this text message put her for the top and she had thoughts of harming herself. She did report plan of cutting her wrists with a knife that she wants or overdosing on oxycodone which she has at home. Patient does have prior attempt of suicide attempt with cutting her wrist. She denies any homicidal ideation. Denies any alcohol or drug use. Denies any m edical complaints at this time. - Related Data Allergies Allergy/AdvReac Type Severity Reaction Status Date / Time pineapple Allergy Mild Hives Verified 04/07/21 22:34 oxycodone [From Percocet] AdvReac Mild Nausea and Verified 04/07/21 22:34 Vomiting Home Meds: Home Meds . [No Known Home Meds] 04/07/21 [History] Past Medical History HEENT History: Reports: Otitis Media Gastrointestinal History: Reports: Irritable Bowel Syndrome Genitourinary History: Reports: UTI, Recurrent FORM STRIPPER History: Reports: , Spontaneous Psychiatric History: Reports: Anxiety Endocrine/Metabolic History: Reports: Other (See Below) Other Endocrine/Metabolic History: enlarged thyroid - Infectious Disease History Infectious Disease History: Reports: Novel Coronavirus Social & Family History - Family History Family Medical History: No Pertinent Family History - Tobacco Use Tobacco Use Status *Q: Never Tobacco User Second Hand Smoke Exposure: No - Caffeine Use Caffeine Use: Reports: None - Recreational Drug Use Recreational Drug Use: No ED ROS GENERAL - Review of Systems Review Of Systems: See Below Free Text/Narrative/Comment: In addition to that documented in the HPI above, the additional ROS was obtained: Constitutional: Denies fevers or chills Eyes: Denies vision changes ENMT: Denies sore throat CV: Denies chest pain Resp: Denies SOB GI: Denies vomiting or diarrhea : Denies painful urination MSK: Denies recent trauma Skin: Denies new rashes Neuro: Denies new numbness or tingling or weakness Endocrine: Denies unexpected weight loss Heme: Denies bleeding disorders ED EXAM, BEHAVIORAL HEALTH - Physical Exam Exam: See Below Text/Narrative:: I have reviewed the triage vital signs Const: Well nourished, well developed, appears stated age Eyes: Pupils Equal and reactive to light bilaterally, no conjunctival injection HENT: No signs of trauma or swelling, Neck supple without meningismus CV: Regular Rate Rhythm, Warm, well-perfused extremities RESP: Unlabored respiratory effort MSK: No gross deformities appreciated Skin: Warm, dry. No rashes Neuro: Alert and oriented x3., egg separator II-XII grossly intact. Sensation and motor function of extremities grossly intact. Psych: Patient is anxious and tearful. COURSE, BEHAVIORAL HEALTH COMP - Course Vital Signs: Last Vital Signs Temp 36.3 C 04/07/21 22:32 Pulse 85 04/07/21 22:32 Resp 20 04/07/21 22:32 BP 171/129 H 04/07/21 22:32 Pulse Ox 98 04/07/21 22:32 Orders, Labs, Meds: Active Orders 24 hr Category Date Time Status Suicide Precautions [RC] Q1HR Care 04/07/21 22:42 Active HCG QUALITATIVE,URINE [URCHEM] Stat Lab 04/08/21 06:33 Ordered Laboratory Tests 04/07/21 04/07/21 04/07/21 Range/Units 23:11 23:20 23:20 WBC 9.66 (3.98-10.04) K/mm3 RBC 5.00 (3.98-5.22) M/mm3 Hgb 11.6 (11.2-15.7) gm/dl Hct 37.5 (34.1-44.9) % MCV 75.0 L D (79.4-94.8) fl MCH 23.2 L (25.6-32.2) pg MCHC 30.9 L (32.2-35.5) g/dl RDW Std Deviation 41.2 (36.4-46.3) fL Plt Count 347 D (182-369) K/mm3 MPV 10.7 (9.4-12.3) fl Neut % (Auto) 65.7 (34.0-71.1) % Lymph % (Auto) 25.7 (19.3-51.7) % [place] % (Auto) 5.5 (4.7-12.5) % Eos % (Auto) 2.5 (0.7-5.8) Baso % (Auto) 0.4 (0.1-1.2) % Neut # (Auto) 6.35 H (1.56-6.13) K/mm3 Lymph # (Auto) 2.48 (1.18-3.74) K/mm3 [place] # (Auto) 0.53 H (0.24-0.36) K/mm3 Eos # (Auto) 0.24 (0.04-0.36) K/mm3 Baso # (Auto) 0.04 (0.01-0.08) K/mm3 Sodium 136 (136-145) mEq/L Potassium 3.8 (3.5-5.1) mEq/L Chloride 101 (98-107) mEq/L Carbon Dioxide 27 (21-32) mEq/L Anion Gap 11.8 (5-15) BUN 11 (7-18) mg/dL Creatinine 0.9 (0.55-1.02) mg/dL Est Cr Clr Drug Dosing 99.86 mL/min Estimated GFR (MDRD) > 60 (>60) mL/min BUN/Creatinine Ratio 12.2 L (14-18) Glucose 96 (70-99) mg/dL Calcium 9.0 (8.5-10.1) mg/dL Total Bilirubin 0.4 (0.2-1.0) mg/dL AST 10 L (15-37) U/L ALT 12 L (14-59) U/L Alkaline Phosphatase 66 (46-116) U/L Total Protein 7.6 (6.4-8.2) g/dl Albumin 3.6 (3.4-5.0) g/dl Globulin 4.0 gm/dL Albumin/Globulin Ratio 0.9 L (1-2) TSH 3rd Generation 8.539 H (0.358-3.74) uIU/mL Salicylates (2.8-20) mg/dL Urine Opiates Screen (ORMWOI=971) Ur Buprenorphine Scrn (CUTOFF=10) Ur Oxycodone Screen (CWR6YE=702) Urine Methadone Screen (IPDPYR=518) Ur Propoxyphene Screen (JALQYX=313) Acetaminophen 0 L (10-30) ug/mL Ur Barbiturates Screen (JOMWAG=587) Ur Tricyclics Screen (ZKTIQL=287) Ur Phencyclidine Scrn (CUTOFF=25) Ur Amphetamine Screen (SGWAIB=883) U Methamphetamines Scrn (NMHGUE=575) U Benzodiazepines Scrn (YKWOHF=911) U Cocaine Metab Screen (OPSTEC=639) U Marijuana (THC) Screen (CUTOFF=50) Ethyl Alcohol 0.00 (0.00) gm% Influenza Type A RNA Negative (NEGATIVE) Influenza Type B RNA Negative (NEGATIVE) SARS-CoV-2 RNA (ANNA) Negative (NEGATIVE) 04/07/21 04/07/21 Range/Units 23:20 23:31 WBC (3.98-10.04) K/mm3 RBC (3.98-5.22) M/mm3 Hgb (11.2-15.7) gm/dl Hct (34.1-44.9) % MCV (79.4-94.8) fl MCH (25.6-32.2) pg MCHC (32.2-35.5) g/dl RDW Std Deviation (36.4-46.3) fL Plt Count (182-369) K/mm3 MPV (9.4-12.3) fl Neut % (Auto) (34.0-71.1) % Lymph % (Auto) (19.3-51.7) % [place] % (Auto) (4.7-12.5) % Eos % (Auto) (0.7-5.8) Baso % (Auto) (0.1-1.2) % Neut # (Auto) (1.56-6.13) K/mm3 Lymph # (Auto) (1.18-3.74) K/mm3 [place] # (Auto) (0.24-0.36) K/mm3 Eos # (Auto) (0.04-0.36) K/mm3 Baso # (Auto) (0.01-0.08) K/mm3 Sodium (136-145) mEq/L Potassium (3.5-5.1) mEq/L Chloride (98-107) mEq/L Carbon Dioxide (21-32) mEq/L Anion Gap (5-15) BUN (7-18) mg/dL Creatinine (0.55-1.02) mg/dL Est Cr Clr Drug Dosing mL/min Estimated GFR (MDRD) (>60) mL/min BUN/Creatinine Ratio (14-18) Glucose (70-99) mg/dL Calcium (8.5-10.1) mg/dL Total Bilirubin (0.2-1.0) mg/dL AST (15-37) U/L ALT (14-59) U/L Alkaline Phosphatase (46-116) U/L Total Protein (6.4-8.2) g/dl Albumin (3.4-5.0) g/dl Globulin gm/dL Albumin/Globulin Ratio (1-2) TSH 3rd Generation (0.358-3.74) uIU/mL Salicylates 0.6 L (2.8-20) mg/dL Urine Opiates Screen Negative (XOUSXE=874) Ur Buprenorphine Scrn Negative (CUTOFF=10) Ur Oxycodone Screen Negative (TMZ4QX=894) Urine Methadone Screen Negative (IMRNHV=159) Ur Propoxyphene Screen Negative (FTOKUZ=176) Acetaminophen (10-30) ug/mL Ur Barbiturates Screen Negative (OWIDKQ=713) Ur Tricyclics Screen Negative (PRJCWH=959) Ur Phencyclidine Scrn Negative (CUTOFF=25) Ur Amphetamine Screen Negative (CBUTQH=554) U Methamphetamines Scrn Negative (VGAMBM=954) U Benzodiazepines Scrn Negative (ZYTBDN=798) U Cocaine Metab Screen Negative (XBQOSR=498) U Marijuana (THC) Screen Negative (CUTOFF=50) Ethyl Alcohol (0.00) gm% Influenza Type A RNA (NEGATIVE) Influenza Type B RNA (NEGATIVE) SARS-CoV-2 RNA (ANNA) (NEGATIVE) Medications Discontinued Medications Generic Name Dose Route Start Last Admin Trade Name Freq PRN Reason Stop Dose Admin Acetaminophen 650 mg 04/08/21 00:35 04/08/21 01:03 Acetaminophen 325 Mg Tab PO 04/08/21 00:36 650 mg NOW ONE Administration Lorazepam 1 mg 04/07/21 23:04 04/07/21 23:39 Lorazepam 1 Mg Tab PO 04/07/21 23:05 1 mg ONETIME ONE Administration Departure - Departure Time of Disposition: 06:41 Disposition: DC/Tfer to Psych Hosp/Unit 65 Clinical Impression: Suicidal ideations - Discharge Information Referrals: PCP,None [Primary Care Provider] - Forms: ED Department Discharge Sepsis Event Note (ED) - Focused Exam Vital Signs: Vital Signs Temp Pulse Resp BP Pulse Ox 04/07/21 22:32 36.3 C 85 20 171/129 H 98 - My Orders Last 24 Hours: My Active Orders 04/07/21 22:42 Suicide Precautions [RC] Q1HR 04/08/21 06:33 HCG QUALITATIVE,URINE [URCHEM] Stat - Assessment/Plan Last 24 Hours: My Active Orders 04/07/21 22:42 Suicide Precautions [RC] Q1HR 04/08/21 06:33 HCG QUALITATIVE,URINE [URCHEM] Stat Assessment:: Patient 25-year-old female presented to the emergency room with suicidal ideations. Patient has significant anxiety on arrival and did require some oral Ativan which improved her symptoms significantly. However, patient reports specific plan with means to commit suicide. Patient does have poor social safety net and is at high risk for self-harm should she be discharged from the hospital. I did place the patient on a hold and was able to secure placement in [facility]. I spoke with Dr. Mendoza who agreed to accept patient for inpatient admission.
[2021-04-08 00:09] LABS: ACETAMINOPHEN 0 ug/mL (10-30)
[2021-04-08 00:15] LABS: CORONAVIRUS COVID-19 NAA NEGATIVE (NEGATIVE)
[2021-04-08] MEDS ORDERED: Acetaminophen 325 MG Tab PO ONE (00:35)
== END 2021-04-08 10:03 ==
LOC: JD.ED 22:03
DX: F32.A Depression, unspecified (principal); F41.9 Anxiety disorder, unspecified; Z91.018 Allergy to other foods; Z88.5 Allergy status to narcotic agent; Z20.822 Contact with and (suspected) exposure to COVID-19
CPT/HCPCS: 0240U; 36415; 80053; 80143; 80179; 80306; 80307; 81025; 84443; 85025; 99285; A9270

== ENCOUNTER 2022-01-23 11:29 | Inpatient (IN) | payer OTHER, MEDICAID ==
[2022-01-23] MEDS ORDERED: Sodium Chloride 0.9% 10 ML Syringe FLUSH PRN (12:08)
[2022-01-23] MEDS ORDERED: Nalbuphine HCl 10 MG/ 1ML Amp IVPUSH PRN (12:08)
[2022-01-23] MEDS ORDERED: Lidocaine 1% 50 ML MDV INJECT PRN (12:08)
[2022-01-23] MEDS ORDERED: Oxytocin/Lactated Ringers 10 UNIT/1,000 ML BAG IV SCH (12:30)
[2022-01-23] MEDS: Lactated Ringers 1,000 ML IV SCH ×3 (12:45→19:48)
[2022-01-23] MEDS ORDERED: Ampicillin 2 GM in Sodium Chloride 0.9% 100 ML IV ONE (13:00)
[2022-01-23] MEDS: Ampicillin 1 GM in Sodium Chloride 0.9% 100 ML IV SCH ×2 (16:35→20:58)
[2022-01-23] MEDS ORDERED: ePHEDrine 50 MG/ML SDV IVPUSH PRN (18:53)
[2022-01-23] MEDS ORDERED: fentaNYL 100 MCG/2 ML SDV EPIDUR PRN (18:53)
[2022-01-23] MEDS ORDERED: diphenhydrAMINE 50 MG/ML SDV IVPUSH PRN (18:53)
[2022-01-23] MEDS: Bupivacaine/fentaNYL/NS 100 ML Bag EPIDUR PRN (19:13)
[2022-01-23] MEDS ORDERED: Oxytocin/Lactated Ringers 20 UNIT/1,000 ML BAG IV SCH (20:45)
[2022-01-23] MEDS ORDERED: Sodium Chloride 0.9% 10 ML Syringe FLUSH SCH (21:00)
[2022-01-24] MEDS: Lactated Ringers 1,000 ML IV SCH (00:27)
[2022-01-24] MEDS: Ampicillin 1 GM in Sodium Chloride 0.9% 100 ML IV SCH ×2 (00:30→04:42)
[2022-01-24] MEDS: Bupivacaine/fentaNYL/NS 100 ML Bag EPIDUR PRN (04:50)
[2022-01-24] MEDS ORDERED: Bupivacaine 0.25% 10 ML SDV ONE (09:00)
[2022-01-24] MEDS ORDERED: Ibuprofen 600 MG Tab PO PRN (10:16)
[2022-01-24] MEDS ORDERED: Benzocaine/Menthol 20%-0.5% Spray 78 GM Cannister TOP PRN (10:16)
[2022-01-24] MEDS ORDERED: Acetaminophen 325 MG Tab PO PRN (10:16)
[2022-01-24] MEDS ORDERED: Witch Hazel Medicated Pads 40/Jar TOP PRN (10:16)
== END 2022-01-25 16:25 | disposition home or self-care (01) | DRG 807 ==
LOC: JD.OBCHECK 11:29 → JD.OB 11:32 → JD.OBCHECK 12:28 → OBSVTOIN 01-24 09:53 → JD.OB 01-24 13:49
PROVIDERS: ADMIT Obstetrics & Gynecology; ATTEND Obstetrics & Gynecology
PROC: 10E0XZZ Delivery of Products of Conception, External Approach (ICD-10-PCS; principal; 2022-01-24)
PROC: 3E0R3BZ Introduction of Anesthetic Agent into Spinal Canal, Percutaneous Approach (ICD-10-PCS; 2022-01-24)
PROC: 00HU33Z Insertion of Infusion Device into Spinal Canal, Percutaneous Approach (ICD-10-PCS; 2022-01-24)
DX: O99.824 Streptococcus B carrier state complicating childbirth (principal); Z37.0 Single live birth; Z3A.39 39 weeks gestation of pregnancy; Z91.018 Allergy to other foods; Z88.5 Allergy status to narcotic agent; Z88.8 Allergy status to other drugs, medicaments and biological substances
CPT/HCPCS: 36415; 51702; 59025; 59409; 85025; 86592; A9270-GY; J0290; J1200; J2590; J3010; J3490; J7120

== ENCOUNTER 2022-06-19 07:51 | Day surgery (SDC) | payer OTHER, MEDICAID ==
[~2022-06-19 07:51] MED LIST: Lactated Ringers 1,000 ML IV SCH; Lidocaine 1%/Sod Bicarbonate in NS 8.4% 1 ML Syringe IDERM PRN; Sodium Chloride 0.9% 10 ML Syringe FLUSH PRN; Sodium Chloride 0.9% 10 ML Syringe FLUSH SCH
[2022-06-19] MEDS ORDERED: Propofol 200 MG/20 ML SDV ONE (08:40)
[2022-06-19] MEDS ORDERED: Ondansetron 4 MG/2 ML SDV ONE (08:40)
[2022-06-19] MEDS ORDERED: Dexamethasone 4 MG/ML SDV ONE (08:40)
[2022-06-19] MEDS ORDERED: Lactated Ringers 1,000 ML ONE (08:40)
[2022-06-19] MEDS ORDERED: Lidocaine 1% 4 ML ONE (08:41)
[2022-06-19] MEDS ORDERED: Midazolam 1 MG/ML 2 ML SDV ONE (08:41)
[2022-06-19] MEDS ORDERED: Bupivacaine 0.5% 30 ML SDV ONE ×2 (08:55→09:50)
[2022-06-19] MEDS ORDERED: Lidocaine 1% 2 ML ONE (09:12)
[2022-06-19] MEDS ORDERED: Ketorolac 30 MG/ML SDV IVPUSH ONE (10:22)
== END 2022-06-19 11:25 | disposition home or self-care (01) ==
LOC: JD.SDS 07:51
PROVIDERS: ATTEND Surgery
DX: D12.8 Benign neoplasm of rectum (principal); K21.00 Gastro-esophageal reflux disease with esophagitis, without bleeding; K29.50 Unspecified chronic gastritis without bleeding; K64.8 Other hemorrhoids; K63.3 Ulcer of intestine; E66.01 Morbid (severe) obesity due to excess calories; F43.25 Adjustment disorder with mixed disturbance of emotions and conduct; F41.9 Anxiety disorder, unspecified; D64.9 Anemia, unspecified; E07.9 Disorder of thyroid, unspecified; K58.9 Irritable bowel syndrome, unspecified; Z98.890 Other specified postprocedural states; Z79.899 Other long term (current) drug therapy; Z88.5 Allergy status to narcotic agent; Z88.8 Allergy status to other drugs, medicaments and biological substances; Z68.41 Body mass index [BMI] 40.0-44.9, adult
CPT/HCPCS: 43239; 45380; 45385; 46221; 81025; J1885; J2250; J2405; J2704; J3490; J7120; J1100

== ENCOUNTER 2024-10-29 14:52 | Emergency (ER) | payer BC, MEDICAID, OTHER ==
[2024-10-29] MEDS: Acetaminophen 325 MG Tab PO ONE (15:31)
== END 2024-10-29 16:50 | disposition home or self-care (01) ==
LOC: JD.ED 14:52
DX: O99.891 Other specified diseases and conditions complicating pregnancy (principal); M54.50 Low back pain, unspecified; R10.9 Unspecified abdominal pain; Z3A.19 19 weeks gestation of pregnancy; Z86.16 Personal history of COVID-19; Z88.8 Allergy status to other drugs, medicaments and biological substances; Z88.5 Allergy status to narcotic agent; Z91.018 Allergy to other foods
CPT/HCPCS: 76815; 99284; A9270; 99283

== ENCOUNTER 2025-03-16 13:03 | Inpatient (IN) | payer BC ==
[2025-03-16] MEDS ORDERED: Ondansetron 4 MG/2 ML SDV IVPUSH PRN (13:12)
[2025-03-16] MEDS ORDERED: Sodium Chloride 0.9% 10 ML Syringe FLUSH PRN (13:12)
[2025-03-16] MEDS ORDERED: Oxytocin/0.9 % Sodium Chloride 30 UNIT/500 ML BAG IV SCH (13:15)
[2025-03-16 13:48] LABS: BASOPHILS ABSOLUTE AUTO 0.0 K/mm3 (0.0-0.2); BASOPHILS PERCENT AUTO 0.3 % (0.0-1.0); EOSINOPHILS ABSOLUTE AUTO 0.1 K/mm3 (0.0-0.4); EOSINOPHILS PERCENT AUTO 1.3 % (0.0-6.0); IMMATURE GRAN ABSOLUTE AUTO 0.05 K/mm3 (0.00-0.05); IMMATURE GRAN PERCENT AUTO 0.5 % (0.0-0.4); LYMPHOCYTES ABSOLUTE AUTO 1.6 K/mm3 (1.0-4.8); LYMPHOCYTES PERCENT AUTO 15.8 % (24.0-44.0); MEAN PLATELET VOLUME 10.4 fl (9.4-12.3); MONOCYTES ABSOLUTE AUTO 0.5 K/mm3 (0.0-0.8); MONOCYTES PERCENT AUTO 4.9 % (0.0-8.0); NEUTROPHILS ABSOLUTE AUTO 7.6 K/mm3 (1.8-7.7); NEUTROPHILS PERCENT AUTO 77.2 % (41.0-71.0); NRBC ABSOLUTE 0.00 (0.00-0.02); NRBC PERCENT 0.0 % (0.0-0.2); PLATELET COUNT,PLT 201 K/mm3 (150-400); RED BLOOD CELL COUNT 4.30 M/mm3 (4.10-5.30); WHITE BLOOD CELL COUNT,WBC 9.84 K/mm3 (3.9-11.3)
[2025-03-16] MEDS: Lactated Ringers 1,000 ML IV SCH (13:53)
[2025-03-16] MEDS: Oxytocin/0.9 % Sodium Chloride 30 UNIT/500 ML BAG IV SCH (14:11)
[2025-03-16] MEDS ORDERED: ePHEDrine 50 MG/ML SDV IVPUSH PRN (21:02)
[2025-03-16] MEDS ORDERED: diphenhydrAMINE 50 MG/ML SDV IVPUSH PRN (21:02)
[2025-03-16] MEDS ORDERED: fentaNYL 100 MCG/2 ML SDV EPIDUR PRN (21:02)
[2025-03-16] MEDS: Bupivacaine/fentaNYL/NS 100 ML Bag EPIDUR PRN (21:11)
[2025-03-16] MEDS: Sodium Chloride 0.9% 10 ML Syringe FLUSH SCH (22:40)
[2025-03-17] MEDS: Witch Hazel Medicated Pads 40/Jar TOP PRN (03:39)
[2025-03-17] MEDS: Benzocaine/Menthol 20%-0.5% Spray 78 GM Cannister TOP PRN (03:39)
== END 2025-03-18 12:35 | disposition home or self-care (01) | DRG 560 ==
LOC: JD.OBCHECK 13:03 → JD.OB 13:05 → JD.OBCHECK 13:23 → OBSVTOIN 03-17 01:29 → JD.OB 03-17 01:30
PROVIDERS: ADMIT Obstetrics & Gynecology; ATTEND Obstetrics & Gynecology
PROC: 10E0XZZ Delivery of Products of Conception, External Approach (ICD-10-PCS; principal; 2025-03-17)
PROC: 10907ZC Drainage of Amniotic Fluid, Therapeutic from Products of Conception, Via Natural or Artificial Opening (ICD-10-PCS; 2025-03-17)
PROC: 3E033VJ Introduction of Other Hormone into Peripheral Vein, Percutaneous Approach (ICD-10-PCS; 2025-03-17)
PROC: 3E0R3BZ Introduction of Anesthetic Agent into Spinal Canal, Percutaneous Approach (ICD-10-PCS; 2025-03-17)
PROC: 00HU33Z Insertion of Infusion Device into Spinal Canal, Percutaneous Approach (ICD-10-PCS; 2025-03-17)
DX: O76 Abnormality in fetal heart rate and rhythm complicating labor and delivery (principal); Z37.0 Single live birth; O99.214 Obesity complicating childbirth; Z3A.39 39 weeks gestation of pregnancy; Z79.899 Other long term (current) drug therapy; Z88.5 Allergy status to narcotic agent; Z91.018 Allergy to other foods
CPT/HCPCS: 36415; 51701; 59025; 59409; 85025; 86592; A9270-GY; C1758; J3490; J7120; J7999